=== PATIENT | male | born 1960 | race Caucasian/White ===

== ENCOUNTER 2019-11-03 08:41 | Emergency (ER) | payer OTHER ==
[~2019-11-03] VITALS: Ht 172.7 cm; Wt 89.0 kg
[2019-11-03 12:19] VITALS: BP 125/72
== END 2019-11-03 12:35 | disposition home or self-care (01) ==
LOC: ED 08:41
DX: A08.4 Viral intestinal infection, unspecified (principal); I10 Essential (primary) hypertension; Z98.890 Other specified postprocedural states
CPT/HCPCS: J1885; J2405; J7030

== ENCOUNTER 2020-01-29 21:42 | Emergency (ER) | payer OTHER ==
[~2020-01-29] VITALS: Ht 175.3 cm; Wt 87.1 kg
[2020-01-29 21:47] VITALS: BP 136/84; Ht 175.3 cm; Wt 87.1 kg
== END 2020-01-29 22:29 | disposition other institution (70) ==
LOC: ED 21:42
DX: G44.209 Tension-type headache, unspecified, not intractable (principal); I10 Essential (primary) hypertension; I25.2 Old myocardial infarction

== ENCOUNTER 2020-01-29 21:42 | Emergency (ER) | payer OTHER | END 2020-01-29 22:29 | disposition other institution (70) | LOC: ED 21:42 | DX: Z02.89 Encounter for other administrative examinations (principal) ==

== ENCOUNTER 2020-03-01 14:21 | Emergency (ER) | payer OTHER, SELFPAY ==
[~2020-03-01] VITALS: Ht 175.3 cm; Wt 90.7 kg
[2020-03-01 14:47] VITALS: Ht 175.3 cm; Wt 90.7 kg
[2020-03-01 16:17] LABS: BASOPHIL % 0.4 % (0-2); PLATELET COUNT 292 x10^3mcL (130-400); RED CELL DISTRIBUTION WIDTH 13.6 % (11.5-14.5)
[2020-03-01 16:27] LABS: CALCIUM 10.3 mg/dL (8.5-10.1); CARBON DIOXIDE 28.7 mmol/L (21-32); CHLORIDE SERUM 101 mmol/L (98-107); GFR1 > 60 mL/min; GLUCOSE SERUM 99 mg/dL (74-106); POTASSIUM SERUM 3.1 mmol/L (3.5-5.1); SODIUM SERUM 138 mmol/L (136-145)
[2020-03-01 16:31] LABS: ALBUMIN 4.1 g/dL (3.4-5.0); ALKALINE PHOSPHATASE 50 U/L (46-116); ALT/SGPT 18 U/L (16-63); AST/SGOT 20 U/L (15-37); BILIRUBIN TOTAL 0.67 mg/dL (0.20-1.00); TOTAL PROTEIN, SERUM 8.1 g/dL (6.4-8.2)
[2020-03-01 17:35] VITALS: BP 132/89
== END 2020-03-01 17:35 | disposition home or self-care (01) ==
LOC: ED 14:21
PROVIDERS: Emergency Medicine
DX: R05 Cough (principal); R06.00 Dyspnea, unspecified; Z20.828 Contact with and (suspected) exposure to other viral communicable diseases
CPT/HCPCS: 36415; 83880; 87804; Q0092

== ENCOUNTER 2020-05-05 08:24 | Emergency (ER) | payer OTHER ==
[~2020-05-05] VITALS: Ht 172.7 cm; Wt 89.8 kg
[2020-05-05 08:46] VITALS: BP 140/78; Ht 172.7 cm; Wt 89.8 kg
== END 2020-05-05 11:04 | disposition left against medical advice (07) ==
LOC: ED 08:24
DX: Z53.21 Procedure and treatment not carried out due to patient leaving prior to being seen by health care provider (principal)

== ENCOUNTER 2020-05-31 08:43 | Emergency (ER) | payer OTHER ==
[~2020-05-31] VITALS: Ht 172.7 cm; Wt 89.8 kg
[2020-05-31 08:54] VITALS: Ht 172.7 cm; Wt 89.8 kg
[2020-05-31 09:50] VITALS: BP 130/87
== END 2020-05-31 09:50 | disposition home or self-care (01) ==
LOC: ED 08:43
DX: H91.92 Unspecified hearing loss, left ear (principal); I10 Essential (primary) hypertension; I25.2 Old myocardial infarction; Z98.84 Bariatric surgery status